=== PATIENT | male | born 1930 | race Caucasian/White ===

== ENCOUNTER → 2018-01-04 | Outpatient (CLI) | payer MEDICARE ==
[~2018-01-04] MED LIST: ALLO100T PO; FLUT1DIS5 IH; GADOBUTROL 10 MMOL/10 ML VIAL IV ONE; PRED5SOL PO; TERA10CA3 PO; TIOT18CA IH; VENTOLIN HFA18 GM INH
--- NOTE | 2018-01-05 10:53 | KCIC ---
EXAM: MRCP WO/W CONTRAST CLINICAL HISTORY: Pancreatic lesions on prior CT. COMPARISON: MRI from 04/20/2008 TECHNIQUE: MRI of the of the pancreas including MRCP sequences performed before and after administration of intravenous gadolinium contrast. FINDINGS: PANCREAS AND ASSOCIATED STRUCTURES: Pancreas: Multiple T2 hyperintense lesions are seen seen within the pancreas. At the inferior margin of the pancreatic body there is a 2.1 x 1.4 x 1.7 cm T2 hyperintense (series 11 image 25), T1 hypointense nonenhancing cystic structure. When measured in a similar fashion, this previously measured 1.6 x 1.1 x 1.3 cm. A multiseptated 1.9 x 2.2 x 1.3 cm T2 hyperintense structure without associated enhancement is new, with extension into the pancreatic duct. Additional nonenhancing T2 hyperintense lesions including a 1.1 cm pancreatic neck lesion (series 11, image 22) and pancreatic body/tail lesion (series 11 image 20), tail lesions (0.9 cm and 1 cm series 11 image 20) are also without enhancement although demonstrate communication with the main pancreatic duct. No definite enhancing mass is identified. There is no pancreatic ductal dilatation. The background pancreatic parenchyma is unremarkable. Peripancreatic findings: There is no peripancreatic soft tissue infiltration, fat stranding, or fluid collections. Peripancreatic vessels: The celiac axis, SMA, and the portal venous system are patent with preserved surrounding fat planes. Peripancreatic lymph nodes: No peripancreatic lymphadenopathy. ABDOMEN: Lower chest: Unremarkable Liver and biliary system: No focal liver lesion is seen. Gallbladder/ biliary system: The gallbladder is not seen. No intra or extrahepatic biliary ductal dilatation. Spleen: Spleen is unremarkable. Adrenal glands: Unremarkable Kidneys: 3 cm right lower pole parapelvic cyst is seen. No definite associated enhancement. No hydronephrosis or hydroureter. Lymph nodes: No lymphadenopathy. Vessels: Focal ectasia of the infrarenal aorta. Bowel/Peritoneal Cavity: A limited portion of the peritoneal cavity is visualized. No abdominal or pelvic ascites. IMPRESSION: 1. Multiple cystic lesions are seen within the pancreas with communication with the main pancreatic duct, one of which is stable and the majority of which are new. If clinically indicated, per ACR guidelines, follow up MRI is recommended in 2 years and 4 years. 2. No definite solid enhancing mass is identified. If there is interval enlargement, EUS/FNA is recommended. Electronically signed by: Gaurav Quinones MD (01/05/2018 10:50 AM) [id number]
== END | disposition home or self-care (01) ==
LOC: KCIC MRI 07:49
PROVIDERS: ATTEND Internal Medicine Gastroenterology
DX: K86.89 Other specified diseases of pancreas (principal)
CPT/HCPCS: 74182; 82565; A9585